=== PATIENT | female | born 1990 | race Caucasian/White ===

== ENCOUNTER 2017-11-09 15:17 | Emergency (ER) | payer BC ==
--- NOTE | 2017-11-09 15:38 | UC ---
Throat Pain/Nasal Brodie HPI - HPI Summary HPI Summary: 27 year old female presents with complains of sore throat , cough and sinus congestion - History of Current Complaint Stated Complaint: ST, BRODIE, COUGH Time Seen by Provider: 11/09/17 15:38 Hx Obtained From: Patient Hx Last Menstrual Period: 08/01/16 Onset/Duration: Sudden Onset Severity: Moderate Cough: Productive Associated Signs & Symptoms: Positive: Sinus Discomfort - Allergies/Home Medications Allergies/Adverse Reactions: Allergies Allergy/AdvReac Type Severity Reaction Status Date / Time No Known Allergies Allergy Verified 11/09/17 15:46 PMH/Surg Hx/FS Hx/Imm Hx Previously Healthy: Yes - Surgical History Surgical History: None - Family History Known Family History: Positive: Hypertension - Social History Alcohol Use: Rare Substance Use Type: None Smoking Status (MU): Never Smoked Tobacco Review of Systems Constitutional: Negative Skin: Negative Eyes: Negative ENT: Sore Throat, Nasal Discharge, Sinus Congestion, Sinus Pain/Tenderness Respiratory: Cough Cardiovascular: Negative Gastrointestinal: Negative Genitourinary: Negative Motor: Negative Neurovascular: Negative Musculoskeletal: Negative Neurological: Negative Psychological: Negative All Other Systems Reviewed And Are Negative: Yes Physical Exam Triage Information Reviewed: Yes Vital Signs Reviewed: Yes Eye Exam: Normal ENT: Positive: Pharyngeal erythema, Nasal congestion, Nasal drainage, Sinus tenderness Dental Exam: Normal Neck exam: Normal Neck: Positive: 1 Respiratory Exam: Normal Cardiovascular Exam: Normal Abdominal Exam: Normal Musculoskeletal Exam: Normal Neurological Exam: Normal Psychological Exam: Normal Skin Exam: Normal Throat Pain/Nasal Course/Dx - Differential Dx/Diagnosis Provider Diagnoses: sinusitis. psot nasal drip Discharge - Discharge Plan Condition: Stable Disposition: HOME Prescriptions: Amoxicillin/Clavulanate TAB* [Augmentin TAB 875*] 875 mg PO BID #20 tab Benzonatate CAP* [Tessalon 100 MG CAP*] 100 mg PO TID PRN #30 cap PRN Reason: Cough Guaifenesin-Codeine [Cheratussin AC] 1 teasp PO BEDTIME PRN #120 ml MDD 5 ml PRN Reason: Cough LoraTADine TAB(NF) [Claritin 10 MG TAB(NF)] 10 mg PO DAILY #30 tab Patient Education Materials: Sinusitis (ED) Forms: *Work Release Referrals: No Primary Care Phys,NOPCP [Primary Care Provider] -
[2017-11-09 15:46] VITALS: BP 149/88
== END 2017-11-09 16:14 | disposition home or self-care (01) ==
LOC: UCCORT 15:17
DX: J32.9 Chronic sinusitis, unspecified (principal); R09.82 Postnasal drip
CPT/HCPCS: 87651; 99212; G0463

== ENCOUNTER 2018-04-14 10:58 | Emergency (ER) | payer BC ==
[2018-04-14 11:35] VITALS: BP 130/80
--- NOTE | 2018-04-14 12:49 | UC ---
Respiratory Complaint HPI - HPI Summary HPI Summary: states that for the past 5 days she has runny nose, facial congestion on right, dry cough and feeling of running out of breath specially while sitting down. States 3 days ago she had a fever of 102F but not for the past 48 hr. Denies discolored discharge, nausea or vomiting, denies blurred vision or dizziness. - History of Current Complaint Chief Complaint: UCRespiratory Stated Complaint: SORE THROAT Time Seen by Provider: 04/14/18 12:29 Hx Obtained From: Patient Hx Last Menstrual Period: 04/02/18 ?: No Onset/Duration: Gradual Onset, Lasting Days Timing: Intermittent Episodes Severity Initially: Mild Severity Currently: Mild Pain Intensity: 0 Character: Cough: Nonproductive Aggravating Factors: Recumbent Position Alleviating Factors: Nothing Associated Signs And Symptoms: Positive: Fever, URI, Nasal Congestion - Risk Factors Pulmonary Embolism Risk Factors: Negative Cardiac Risk Factors: Negative Pseudomonas Risk Factors: Negative Tuberculosis Risk Factors: Negative - Allergies/Home Medications Allergies/Adverse Reactions: Allergies Allergy/AdvReac Type Severity Reaction Status Date / Time No Known Allergies Allergy Verified 04/14/18 11:31 PMH/Surg Hx/FS Hx/Imm Hx Previously Healthy: Yes - Surgical History Surgical History: None - Family History Known Family History: Positive: Hypertension - Social History Alcohol Use: Rare Substance Use Type: None Smoking Status (MU): Never Smoked Tobacco - Immunization History Most Recent Influenza Vaccination: none Review of Systems Constitutional: Negative ENT: Nasal Discharge, Sinus Pain/Tenderness Respiratory: Cough All Other Systems Reviewed And Are Negative: Yes Physical Exam Triage Information Reviewed: Yes Appearance: Well-Appearing, No Pain Distress, Obese Vital Signs: Initial Vital Signs Temp 97.5 F 04/14/18 11:29 Pulse 77 04/14/18 11:29 Resp 16 04/14/18 11:29 BP 130/80 04/14/18 11:29 Pulse Ox 100 04/14/18 11:29 Vital Signs Reviewed: Yes Eyes: Positive: Conjunctiva Clear ENT: Positive: Hearing grossly normal, Pharynx normal, Nasal congestion, TMs normal, Uvula midline Neck: Positive: Supple, Nontender, No Lymphadenopathy Respiratory: Positive: Chest non-tender, Lungs clear, Normal breath sounds, No respiratory distress, No accessory muscle use Cardiovascular: Positive: RRR, No Murmur, Pulses Normal, Brisk Capillary Refill Abdomen Description: Positive: Nontender Bowel Sounds: Positive: Present UC Diagnostic Evaluation - Laboratory O2 Sat by Pulse Oximetry: 100 Respiratory Course/Dx - Course Course Of Treatment: Patient has past history of reactive airway disease and use of inhalers similar to current, will start symbicort, technique reviewed with patient, f/u PCP in 1 week - Differential Dx/Diagnosis Provider Diagnoses: Reactive airway disease Discharge - Sign-Out/Discharge Documenting (check all that apply): Discharge/Admit/Transfer - Discharge Plan Condition: Good Disposition: HOME Prescriptions: Budesonide/Formote 160/4.5(NF) [Symbicort 160/4.5 (NF)] 1 puff INH BID 10 Days # 1 mdi Patient Education Materials: Reactive Airways Disease (ED), Budesonide/ Formoterol (By breathing) Forms: *Work Release Referrals: Anjelica Matamoros PA [Primary Care Provider] - - Billing Disposition and Condition Condition: GOOD Disposition: Home
== END 2018-04-14 12:51 | disposition home or self-care (01) ==
LOC: UCCORT 10:58
DX: J45.909 Unspecified asthma, uncomplicated (principal); E66.9 Obesity, unspecified
CPT/HCPCS: 99212; G0463

== ENCOUNTER 2018-08-18 17:21 | Emergency (ER) | payer BC ==
[2018-08-18 18:19] VITALS: BP 124/78
--- NOTE | 2018-08-18 18:28 | UC ---
Respiratory Complaint HPI - HPI Summary HPI Summary: cough and chest congestion for 7 days-- fever for the first 3 days---feels SOB and easily winded - History of Current Complaint Chief Complaint: UCRespiratory Stated Complaint: COUGH, CHEST CONGESTION Time Seen by Provider: 08/18/18 18:25 Hx Obtained From: Patient Hx Last Menstrual Period: 08/15/18 ?: No Onset/Duration: Sudden Onset, Lasting Days - 7, Worse Since - past 3 days Timing: Constant Severity Initially: Moderate Severity Currently: Moderate Character: Cough: Productive Aggravating Factors: Exertion Alleviating Factors: Nothing Associated Signs And Symptoms: Positive: Fever, URI Related History: Seasonal Allergies - Allergies/Home Medications Allergies/Adverse Reactions: Allergies Allergy/AdvReac Type Severity Reaction Status Date / Time No Known Allergies Allergy Verified 08/18/18 18:14 Home Medications: Home Medications guaiFENesin [Mucinex] 600 mg PO Q6H 08/18/18 [History Confirmed 08/18/18] PMH/Surg Hx/FS Hx/Imm Hx Previously Healthy: Yes - Surgical History Surgical History: None - Family History Known Family History: Positive: Hypertension - Social History Occupation: Employed Full-time Lives: With Family Alcohol Use: None Substance Use Type: None Smoking Status (MU): Never Smoked Tobacco - Immunization History Most Recent Influenza Vaccination: none Review of Systems Constitutional: Fever, Chills, Fatigue Skin: Negative Eyes: Negative ENT: Negative Respiratory: Shortness Of Breath, Cough Cardiovascular: Negative Gastrointestinal: Negative Genitourinary: Negative Motor: Negative Neurovascular: Negative Musculoskeletal: Negative Neurological: Negative Psychological: Negative Is Patient Immunocompromised?: No All Other Systems Reviewed And Are Negative: Yes Physical Exam Triage Information Reviewed: Yes Appearance: No Pain Distress, Ill-Appearing - mil-moderate, Obese Vital Signs: Initial Vital Signs Temp 97.1 F 08/18/18 18:11 Pulse 126 08/18/18 18:11 Resp 21 08/18/18 18:11 BP 124/78 08/18/18 18:11 Pulse Ox 96 08/18/18 18:11 Vital Signs Reviewed: Yes Eye Exam: Normal Eyes: Positive: Conjunctiva Clear ENT Exam: Normal ENT: Positive: Normal ENT inspection, Hearing grossly normal, Pharynx normal, TMs normal - right, TM bulging - left, TM red - left, Uvula midline. Negative: Nasal congestion, Trismus, Muffled voice, Hoarse voice, Dental tenderness, Sinus tenderness Dental Exam: Normal Neck exam: Normal Neck: Positive: Supple, Nontender, No Lymphadenopathy Respiratory Exam: Normal Respiratory: Positive: Chest non-tender, Lungs clear, Normal breath sounds, No respiratory distress, No accessory muscle use Cardiovascular: Positive: No Murmur, Pulses Normal, Brisk Capillary Refill, Tachycardia Musculoskeletal Exam: Normal Musculoskeletal: Positive: Strength Intact, ROM Intact, No Edema Neurological Exam: Normal Neurological: Positive: Alert, Muscle Tone Normal Psychological Exam: Normal Skin Exam: Normal UC Diagnostic Evaluation - Laboratory O2 Sat by Pulse Oximetry: 96 - Radiology Xray Interpretation: No Acute Changes Radiology Interpretation Completed By: ED Physician Respiratory Course/Dx - Course Course Of Treatment: robitussin and codiene for cough, antibiodic for ear infection, prednisone for bronchospasm---follow with pcp - Differential Dx/Diagnosis Provider Diagnoses: left otitis media, bronchititis Discharge - Sign-Out/Discharge Documenting (check all that apply): Patient Departure All imaging exams completed and their final reports reviewed: No - Discharge Plan Condition: Stable Disposition: HOME Prescriptions: Amoxicillin/Clavulanate TAB* [Augmentin TAB 875*] 875 mg PO BID 10 Days #19 tab Codeine Phosphate/Guaifenesin [Guaifen-Codeine 100-10 mg/5 ml] 5 - 10 ml PO Q6HR #120 ml MDD 40ml predniSONE [Prednisone 20 MG TAB] 20 mg PO DAILY #9 tablet Patient Education Materials: Acute Bronchitis (ED), Bronchospasm (ED) Forms: *Work Release Referrals: Anjelica Matamoros PA [Primary Care Provider] - If Needed - Billing Disposition and Condition Condition: STABLE Disposition: Home
[2018-08-18] MEDS ORDERED: Albuterol/Ipratropium NEB.SOL* Albuterol 2.5 MG/Ipratropium 0.5 MG 3 ML INH ONE (18:36)
[2018-08-18] MEDS ORDERED: predniSONE TAB* 20 MG PO ONE (18:39)
[2018-08-18] MEDS ORDERED: Albuterol 2.5 MG/3 ML NEB.SOL* (0.083%) INH ONE (18:41)
[2018-08-18] MEDS ORDERED: Ipratropium 0.5MG/2.5ML NEB* 0.5 MG/2.5 ML NEB.SOLN INH ONE (18:42)
[2018-08-18] MEDS ORDERED: Amoxicillin/Clavulanate TAB* 875 MG PO ONE (19:38)
[2018-08-18] MEDS ORDERED: Albuterol HFA INHALER* 8 gm MDI INH ONE (19:39)
[2018-08-18] MEDS ORDERED: guaiFENesin/CODIEN 100MG-10MG* 5 ML UDC PO ONE (19:41)
--- NOTE | 2018-08-19 07:31 | RAD ---
HISTORY: sob/cough low sat COMPARISONS: September 02, 2016 VIEWS: 4: Frontal dual-energy and lateral views of the chest. FINDINGS: CARDIOMEDIASTINAL SILHOUETTE: The cardiomediastinal silhouette is normal. DURAN: The duran are normal. PLEURA: The costophrenic angles are sharp. No pleural abnormalities are noted. LUNG PARENCHYMA: The lungs are clear. ABDOMEN: The upper abdomen is clear. There is no subphrenic gas. BONES AND SOFT TISSUES: No bone or soft tissue abnormalities are noted. OTHER: None. IMPRESSION: NO ACTIVE CARDIOPULMONARY DISEASE. R0
--- NOTE | 2018-08-19 07:51 | UC ---
- EKG/XRAY/CT XRAY: chest - wet read correct Discharge - Sign-Out/Discharge Documenting (check all that apply): Post-Discharge Follow Up All imaging exams completed and their final reports reviewed: Yes - Discharge Plan Condition: Stable Disposition: HOME Prescriptions: Amoxicillin/Clavulanate TAB* [Augmentin TAB 875*] 875 mg PO BID 10 Days #19 tab Codeine Phosphate/Guaifenesin [Guaifen-Codeine 100-10 mg/5 ml] 5 - 10 ml PO Q6HR #120 ml MDD 40ml predniSONE [Prednisone 20 MG TAB] 20 mg PO DAILY #9 tablet Patient Education Materials: Acute Bronchitis (ED), Bronchospasm (ED) Forms: *Work Release Referrals: Anjelica Matamoros PA [Primary Care Provider] - If Needed - Billing Disposition and Condition Condition: STABLE Disposition: Home
== END 2018-08-18 19:57 | disposition home or self-care (01) ==
LOC: UCCORT 17:21
DX: H66.92 Otitis media, unspecified, left ear (principal); J40 Bronchitis, not specified as acute or chronic
CPT/HCPCS: 71046; 99213; A9270-GY; G0463; J7512

== ENCOUNTER 2018-12-02 17:34 | Emergency (ER) | payer BC ==
[2018-12-02] MEDS ORDERED: Ondansetron ODT TAB* 4 MG PO ONE ×2 (20:31→21:17)
--- NOTE | 2018-12-02 21:11 | UC ---
Nausea/Vomiting/Diarrhea HPI - HPI Summary HPI Summary: 28-year-old female presents reporting onset of fever and body aches 2 days ago. Today developed nausea, vomiting, and diarrhea. States she's had approximately 6 episodes of vomiting clear yellowish emesis including one episode here in the clinic. Reports greater than 10 episodes of watery diarrhea. Denies nasal congestion, sore throat, cough, chest pain, palpitations , weakness, dizziness, abdominal pain, hematemesis, blood in stool, melena, dysuria, frequency, or urgency. Last menstrual period 11/15/18. Patient is in a relationship with a female partner. - History of Current Complaint Chief Complaint: UCGeneralIllness Stated Complaint: FLU SYMP. Time Seen by Provider: 12/02/18 19:40 Hx Obtained From: Patient Hx Last Menstrual Period: 11/15/18 Pain Intensity: 7 - Allergies/Home Medications Allergies/Adverse Reactions: Allergies Allergy/AdvReac Type Severity Reaction Status Date / Time No Known Allergies Allergy Verified 12/02/18 19:49 PMH/Surg Hx/FS Hx/Imm Hx Previously Healthy: Yes - Denies significant PMH - Surgical History Surgical History: None - Family History Known Family History: Positive: Hypertension - Social History Occupation: Employed Full-time Lives: Alone Alcohol Use: None Substance Use Type: None Smoking Status (MU): Never Smoked Tobacco - Immunization History Most Recent Influenza Vaccination: none Review of Systems All Other Systems Reviewed And Are Negative: Yes Constitutional: Positive: Fever, Chills Skin: Negative: Rash ENT: Negative: Sore Throat, Ear Ache, Nasal Discharge, Sinus Congestion, Sinus Pain/Tenderness Respiratory: Negative: Shortness Of Breath, Cough Cardiovascular: Negative: Palpitations, Chest Pain Gastrointestinal: Positive: Vomiting, Diarrhea, Nausea. Negative: Abdominal Pain Genitourinary: Negative: Dysuria, Hematuria, Frequency, Urgency, Vaginal/Penile Discharge, Abnormal Bleeding Musculoskeletal: Positive: Negative Neurological: Positive: Negative Is Patient Immunocompromised?: No Physical Exam - Summary Physical Exam Summary: GENERAL APPEARANCE: Well developed, obese, alert and cooperative, and appears to be in no acute distress EYES: Conjunctiva clear. No discharge. Vision is grossly intact. EARS: External auditory canals and tympanic membranes clear, hearing grossly intact. NOSE: No nasal discharge. THROAT: Oral cavity and pharynx normal. No inflammation, swelling, exudate, or lesions. Teeth and gingiva in good general condition. NECK: Neck supple, non-tender without lymphadenopathy. CARDIAC: Normal S1 and S2. No S3, S4 or murmurs. Rhythm is regular. There is no peripheral edema, cyanosis or pallor. Extremities are warm and well perfused. Capillary refill is less than 2 seconds. Peripheral pulses intact. LUNGS: Clear to auscultation without rales, rhonchi, wheezing or diminished breath sounds. ABDOMEN: Positive bowel sounds. Soft, nondistended, nontender. No guarding or rebound. No masses or hepatosplenomegally. No CVA tenderness. MUSKULOSKELETAL: ROM intact to all extremities. No joint erythema or tenderness. Normal muscular development. Normal gait. SKIN: Skin normal color, texture and turgor with no lesions or eruptions. Triage Information Reviewed: Yes Vital Signs: Initial Vital Signs Temp 97.0 F 12/02/18 19:43 Pulse 97 12/02/18 19:43 Resp 16 12/02/18 19:43 BP 134/100 12/02/18 19:43 Pulse Ox 98 12/02/18 19:43 Vital Signs Reviewed: Yes Naus/Vom/Diarrhea Course/Dx - Course Course Of Treatment: 28-year-old female presents reporting onset of fever and body aches 2 days ago. Today developed nausea, vomiting, and diarrhea. States she's had approximately 6 episodes of vomiting clear yellowish emesis including one episode here in the clinic. Reports greater than 10 episodes of watery diarrhea. Denies nasal congestion, sore throat, cough, chest pain, palpitations , weakness, dizziness, abdominal pain, hematemesis, blood in stool, melena, dysuria, frequency, or urgency. Last menstrual period 11/15/18. Patient is in a relationship with a female partner. Afebrile. Vital signs stable. Patient was noted to have 1 and episode of emesis just prior to evaluation. She was in no acute distress and her exam was overall unremarkable. She was given ondansetron 8 mg PO 1 dose in the clinic with relief in her nausea. She was given a PO fluid challenge which she tolerated without any further episodes of vomiting. No episodes of diarrhea were noted during the course of her stay. Suspect a viral gastroenteritis however discussed with the patient that I cannot completely rule out other causes including gallbladder disease or appendicitis. I will send her home with another dose of Zofran to use as needed for nausea vomiting and send a prescription for Zofran 8 mg by mouth every 8 hours as needed for nausea. She is to push fluids. She to follow up with her primary care provider in 3 days if symptoms do not improve. Anticipatory guidance and warning symptoms were reviewed with the patient. Verbalizes understanding and agrees with plan of care. - Differential Dx/Diagnosis Differential Diagnoses - Female: Appendicitis, Irritable Bowel Syndrome, Gall Bladder Disease, Gastroenteritis (Viral), Gastroenteritis (Bacterial), Vomiting , Diarrhea, Colitis Provider Diagnosis: Nausea and vomiting in adult, Diarrhea Condition At Discharge: Stable Discharge - Sign-Out/Discharge Documenting (check all that apply): Patient Departure All imaging exams completed and their final reports reviewed: No Studies - Discharge Plan Condition: Stable Disposition: HOME Prescriptions: Ondansetron ODT TAB* [Zofran 4 MG Odt TAB*] 8 mg PO Q8H PRN #6 tab.odt PRN Reason: Nausea/Vomiting Patient Education Materials: Acute Nausea and Vomiting (ED), Acute Diarrhea (ED ) Forms: *Work Release Referrals: Anjelica Matamoros PA [Primary Care Provider] - 3 Days (If no improvement in symptoms) Additional Instructions: Drink plenty of fluids. Try to drink small amounts frequently to avoid filling your stomach to full which can cause vomiting. Take ondansetron (Zofran) 8 mg every 8 hours as needed for nausea or vomiting. Be sure to use good hand hygiene to prevent spreading infection. If you are still having vomiting, start with a clear liquid diet including soup broths, Jello, popsicles, and sacha-mulugeta with carbonation stirred out of it. You may then advance to a bland diet including saltine crackers, toast, bananas , rice, and applesauce. Then return to a normal diet as tolerated. Follow up here or with your primary care provider in 3 days if symptoms persist. Seek immediate medical attention in the emergency room if you develop fever greater than 100.5 F, have severe abdominal pain, persistent vomiting, blood in your vomit or stool, or any worsening of symptoms. - Billing Disposition and Condition Condition: STABLE Disposition: Home
[2018-12-02 21:28] VITALS: BP 138/92
== END 2018-12-02 21:29 | disposition home or self-care (01) ==
LOC: UCCORT 17:34
DX: R11.2 Nausea with vomiting, unspecified (principal); R19.7 Diarrhea, unspecified; R50.9 Fever, unspecified; E66.9 Obesity, unspecified
CPT/HCPCS: 99213; A9270-GY; G0463

== ENCOUNTER 2019-02-24 14:49 | Emergency (ER) | payer BC ==
[2019-02-24 15:53] VITALS: BP 150/88
--- NOTE | 2019-02-24 16:30 | UC ---
Throat Pain/Nasal Brodie HPI - HPI Summary HPI Summary: Patient has had a sore left side of her neck over the past 2-3 days. Recent illness. - History of Current Complaint Chief Complaint: UCGeneralIllness Stated Complaint: SORE THROAT Time Seen by Provider: 02/24/19 15:44 Hx Obtained From: Patient, Family/Cabbage Salter Hx Last Menstrual Period: January 20 ?: No Onset/Duration: Gradual Onset Severity: Mild Pain Intensity: 7 Associated Signs & Symptoms: Positive: Negative - Epiglottits Risk Factors Epiglottis Risk Factors: Negative - Allergies/Home Medications Allergies/Adverse Reactions: Allergies Allergy/AdvReac Type Severity Reaction Status Date / Time No Known Allergies Allergy Verified 02/24/19 15:53 Home Medications: Home Medications NK [No Home Medications Reported] 02/24/19 [History Confirmed 02/24/19] PMH/Surg Hx/FS Hx/Imm Hx Previously Healthy: Yes - Surgical History Surgical History: None - Family History Known Family History: Positive: Hypertension - Social History Alcohol Use: Occasionally Substance Use Type: None Smoking Status (MU): Never Smoked Tobacco - Immunization History Most Recent Influenza Vaccination: none Review of Systems All Other Systems Reviewed And Are Negative: Yes ENT: Positive: Other - Soreness to left side of neck.. Negative: Dental Pain Is Patient Immunocompromised?: No Physical Exam Triage Information Reviewed: Yes Appearance: Well-Appearing, No Pain Distress, Well-Nourished Vital Signs: Initial Vital Signs Temp 97.9 F 02/24/19 15:41 Pulse 114 02/24/19 15:41 Resp 20 02/24/19 15:41 BP 150/88 02/24/19 15:41 Pulse Ox 99 02/24/19 15:41 Vital Signs Reviewed: Yes Eye Exam: Normal ENT: Positive: Normal ENT inspection, Pharynx normal, TMs normal, Uvula midline Dental Exam: Normal Dental: Positive: Other: - Gumline is normal pink in color. Neck exam: Normal Throat Pain/Nasal Course/Dx - Course Course Of Treatment: Rapid strep test was negative. At this point in time I want her just to observe for any worsening symptoms. I don't feel any lymphadenopathy, she's had no sore throat and no dental pain no fever. She is to follow-up with her primary care provider near the end of the week if any worsening symptoms. - Differential Dx/Diagnosis Provider Diagnosis: Neck pain Discharge - Sign-Out/Discharge Documenting (check all that apply): Patient Departure All imaging exams completed and their final reports reviewed: No Studies - Discharge Plan Condition: Good Disposition: HOME Patient Education Materials: Pharyngitis (ED) Forms: *Work Release Referrals: Anjelica Matamoros PA [Primary Care Provider] - Additional Instructions: Increase fluids, Tylenol every 4 hours or Motrin every 8 hours for pain. Definite follow-up with your primary care provider if no improvement in 3 or 4 days. - Billing Disposition and Condition Condition: GOOD Disposition: Home
== END 2019-02-24 16:29 | disposition home or self-care (01) ==
LOC: UCCORT 14:49
DX: M54.2 Cervicalgia (principal); J02.9 Acute pharyngitis, unspecified
CPT/HCPCS: 87651; 99211; G0463

== ENCOUNTER 2019-06-22 10:41 | Emergency (ER) | payer BC ==
[2019-06-22 11:06] VITALS: BP 145/86
--- NOTE | 2019-06-22 11:22 | UC ---
Ear Complaint HPI - HPI Summary HPI Summary: Pt co right side jaw, ear, and sinus/cheek that began slowly and is worsening over the last "few days". Pt states that she was out of town for a work event and she reports that she was "talking for 8 hours a day" and she reports that she rinds and clenches her teeth at night. Pt denies, nasal congestion, fever or chills, ST or cough. Denies cut/laceration or potential exposure to tetanus - History of Current Complaint Chief Complaint: UCEar Stated Complaint: RT EAR PAIN Time Seen by Provider: 06/22/19 10:56 Hx Obtained From: Patient Hx Last Menstrual Period: 06/07/19-06/12/19 ?: No Onset/Duration: Gradual Onset, Lasting Days, Still Present Severity Initially: Mild Severity Currently: Moderate Pain Intensity: 8 Associated Signs/Symptoms: Positive: Swelling @ - right side of face - Allergies/Home Medications Allergies/Adverse Reactions: Allergies Allergy/AdvReac Type Severity Reaction Status Date / Time No Known Allergies Allergy Verified 06/22/19 11:01 Home Medications: Home Medications Omeprazole 20 mg PO DAILY 06/22/19 [History Confirmed 06/22/19] PMH/Surg Hx/FS Hx/Imm Hx Previously Healthy: Yes - Surgical History Surgical History: None - Family History Known Family History: Positive: Hypertension - Social History Occupation: Employed Full-time Lives: With Family Alcohol Use: Occasionally Substance Use Type: None Smoking Status (MU): Never Smoked Tobacco Have You Smoked in the Last Year: No - Immunization History Most Recent Influenza Vaccination: none Review of Systems All Other Systems Reviewed And Are Negative: Yes Constitutional: Positive: Negative Skin: Positive: Negative Eyes: Positive: Negative ENT: Positive: Ear Ache Respiratory: Positive: Negative Cardiovascular: Positive: Negative Gastrointestinal: Positive: Negative Genitourinary: Positive: Negative Motor: Positive: Negative Neurovascular: Positive: Negative Musculoskeletal: Positive: Myalgia Neurological: Positive: Negative Psychological: Positive: Negative Is Patient Immunocompromised?: No Physical Exam Triage Information Reviewed: Yes Appearance: Pain Distress Vital Signs: Initial Vital Signs Temp 97.7 F 06/22/19 11:02 Pulse 92 06/22/19 11:02 Resp 16 06/22/19 11:02 BP 145/86 06/22/19 11:02 Pulse Ox 98 08/18/19 11:02 Vital Signs Reviewed: Yes Eye Exam: Normal ENT: Positive: Other - right side tragal tenderness, right side sinus tenderness , jaw pain and c/o pain opening mouth Dental Exam: Normal Dental: Positive: Other: - NO TMJ slippage, pain with opening and closing of mouth Neck: Positive: Other: - tender right submaxillary Respiratory Exam: Normal Respiratory: Positive: No respiratory distress Neurological: Positive: Other: - pain with opening and closing of mouth at TML joint right side Psychological Exam: Normal Skin Exam: Normal Ear Complaint Course/Dx - Differential Dx/Diagnosis Differential Diagnosis/HQI/PQRI: Mastoiditis, Otitis Externa, Trigeminal Nueralgia Provider Diagnosis: Jaw pain, Ear pain, right Discharge - Sign-Out/Discharge Documenting (check all that apply): Patient Departure All imaging exams completed and their final reports reviewed: No Studies - Discharge Plan Condition: Stable Disposition: HOME Prescriptions: predniSONE TAB* [Deltasone 10 MG TAB*] 30 mg PO DAILY #12 tab Patient Education Materials: Temporomandibular Disorder (ED), Earache (ED), Safe Use of NSAIDs (ED) Forms: *Work Release Referrals: Anjelica Matamoros PA [Primary Care Provider] - 3 Days Additional Instructions: Please follow up with your PCP and/or your dental care provider as needed. - Billing Disposition and Condition Condition: STABLE Disposition: Home
== END 2019-06-22 11:36 | disposition home or self-care (01) ==
LOC: UCCORT 10:41
DX: R68.84 Jaw pain (principal); H92.01 Otalgia, right ear
CPT/HCPCS: 99212; G0463